=== PATIENT | male | born 1970 | race Caucasian/White ===

== ENCOUNTER 2022-10-02 14:21 | Outpatient (REF) | payer BC, SELFPAY ==
--- NOTE | ~2022-10-02 | XR_ITS ---
EXAMINATION: XR CHEST CLINICAL INFORMATION: Shortness of breath. COMPARISON: None available. TECHNIQUE: 2 views of the chest were obtained. XR/XR chest 2V FINDINGS/IMPRESSION: No infiltrate, effusion, or pneumothorax is seen. The cardiac silhouette may be mildly enlarged, suggesting mild cardiomegaly; pericardial fluid cannot be confirmed or excluded. The mediastinum, diaphragm, bones, and soft tissues appear unremarkable.
== END 2022-10-02 14:22 | disposition home or self-care (01) ==
LOC: HO.HMGCX 14:21
PROVIDERS: PCP Internal Medicine; Visit Provider Internal Medicine
DX: R06.02 Shortness of breath (principal)
CPT/HCPCS: 71046